=== PATIENT | female | born 1985 | race Hispanic/Latino ===

== ENCOUNTER 2022-01-30 12:54 | Outpatient (CLI) | payer BC | END 2022-01-30 12:55 | disposition home or self-care (01) | LOC: EDBD → CSHLAB 12:54 | PROVIDERS: ATTEND Student in an Organized Health Care Education/Training Program | DX: Z01.818 Encounter for other preprocedural examination (principal) | CPT/HCPCS: 84703; 85027; 86850; 86900; 86901; 93005; 93010 ==

== ENCOUNTER 2022-02-04 10:07 | Day surgery (SDC) | payer BC ==
[2022-01-30 14:06] LABS: Hemoglobin 13.7 g/dL (12.0-15.5); Mean Corpuscular HGB CONC 33.8 g/dL (32.0-36.0); Mean Corpuscular Hemoglobin 27.3 pg (27.0-33.0); Mean Corpuscular Volume 80.8 fl (81.6-98.3); Mean Platelet Volume 9.7 fl (7.4-10.4); Platelet Count 379 10x3/uL (150-450); Red Blood Cell (RBC) Count 5.01 10x6/uL (3.90-5.03); White Blood Cell (WBC) Count 8.5 10x3/uL (3.5-10.5)
[2022-01-30 14:22] LABS: BHCG - Serum Negative (NEGATIVE); Pregs Control Background? CLEAR/WHITE (CLR/WHITE); Pregs Control Bar Appear? YES (CONTROL BAR)
[2022-01-31 12:14] VITALS: BMI 34.4
[2022-02-04] MEDS ORDERED: CeleCOXIB 100 MG CAP ONE (10:21)
[2022-02-04] MEDS ORDERED: Ondansetron PF 4 MG/2 ML Vial ONE (11:53)
[2022-02-04] MEDS ORDERED: Ketorolac Tromethamine 30 MG/ML VIAL ONE ×2 (11:53→13:56)
[2022-02-04] MEDS ORDERED: Lidocaine 2% PF 5 ML VIAL ONE (11:53)
[2022-02-04] MEDS ORDERED: PROPOFOL 20 ML ONE ×2 (11:53→12:36)
[2022-02-04] MEDS ORDERED: Dexamethasone 4 mg/ml Vial ONE (11:53)
[2022-02-04] MEDS ORDERED: Fentanyl 100 MCG/2 ML VIAL ONE ×2 (11:53→13:56)
[2022-02-04] MEDS ORDERED: Metoclopramide HCl 10 MG/2 ML VIAL ONE (11:53)
[2022-02-04] MEDS ORDERED: Famotidine/PF 20 mg/2ml Vial ONE (11:55)
[2022-02-04] MEDS ORDERED: ePHEDrine Sulfate 50 MG/10 ML VIAL ONE (13:05)
== END 2022-02-04 15:02 | disposition home or self-care (01) ==
LOC: CSHSDC 10:07 → EDBD 12:45 → CSHSDC 15:02
PROVIDERS: ATTEND Student in an Organized Health Care Education/Training Program
PROC: 0UDB8ZZ Extraction of Endometrium, Via Natural or Artificial Opening Endoscopic (ICD-10-PCS; principal; 2022-02-04)
DX: C54.1 Malignant neoplasm of endometrium (principal); I10 Essential (primary) hypertension; Z79.899 Other long term (current) drug therapy
CPT/HCPCS: 36415; 84703; 85027; 86850; 86900; 86901; 88305; J1100; J1885; J2001; J2405; J2704; J2765; J3010; S0028